=== PATIENT | female | born 1945 | race Caucasian/White ===

== ENCOUNTER 2017-01-03 19:44 | Emergency (ER) | payer OTHER ==
[~2017-01-03] VITALS: Ht 160 cm; Wt 55.7 kg
[2017-01-03 20:03] VITALS: PULSE 72; RESP 14; TEMP 98.6; O2SAT 96
[2017-01-03] MEDS ORDERED: SULF500T3 PO (20:25)
[2017-01-03] MEDS ORDERED: FLUT50SP EACH NARE (20:25)
[2017-01-03] MEDS ORDERED: CITA40TA4 PO (20:25)
[2017-01-03] MEDS ORDERED: ASPI81CH37 CHEW (20:25)
[2017-01-03] MEDS ORDERED: AZAT50 PO (20:25)
[2017-01-03] MEDS ORDERED: OMEP40CA2 PO (20:25)
[2017-01-03] MEDS ORDERED: LIDOCAINE 1%/EPINEPHrine 1:100,000 SOLN 20 ML VIAL INFIL ONE (20:30)
--- NOTE | 2017-01-03 20:31 | PD ---
HPI Chief Complaint: Laceration/Skin Injury Time Seen by Provider: 20:30 Travel History International Travel<30 days: No Contact w/Intl Traveler<30days: No Traveled to known affect area: No History of Present Illness HPI 71-year-old female presents the emergency department with laceration to the left middle middle finger. Patient states he was cutting peppers when she slipped and cut her finger. She is unsure of her last tetanus shot. She has full function but has a little bit of numbness distal to the wound in the fingertip. Pain is minimal. Bleeding is currently controlled. She is allergic to codeine. PFSH Past Medical History AAA: Yes Cardiovascular Problems: Yes (Lt. carotid stenosis) Gastrointestinal Disorders: Yes (IBS, Crohn's, Lyon's esophagus ) Hiatal Hernia: Yes Respiratory: Yes (COPD) Tetanus Vaccination: > 5 Years Influenza Vaccination: No ?: Not Menopausal: Yes Past Surgical History Hysterectomy: Yes Social History Alcohol Use: No Tobacco Use: Yes (1.5 PPD) Substance Use: No Allergies-Medications (Allergen,Severity, Reaction): Coded Allergies: Codeine (Verified Adverse Reaction, Severe, Convulsions , 01/03/17) Reported Meds & Prescriptions Reported Meds & Active Scripts Active Reported Fluticasone Nasal [place] 50 Mcg/Act Naspr 100 Mcg EACH NARE DAILY 50 mcg/spray Aspirin Low Dose (Aspirin) 81 Mg Chew 81 Mg CHEW DAILY Azathioprine 50 Mg Tab 50 Mg PO BID Hazardous agent use appropriate precautions for handling and disposal. Sulfasalazine 500 Mg Tab 500 Mg PO BID Omeprazole 40 Mg Cap 40 Mg PO DAILY Review of Systems General / Constitutional: No: Fever Eyes: No: Visual changes HENT: No: Headaches Cardiovascular: No: Chest Pain or Discomfort Respiratory: No: Shortness of Breath Gastrointestinal: No: Abdominal Pain Genitourinary: No: Dysuria Musculoskeletal: No: Pain Skin: No Rash Neurologic: No: Weakness Psychiatric: No: Depression Endocrine: No: Polydipsia Hematologic/Lymphatic: No: Easy Bruising Physical Exam Narrative GENERAL: Patient appears in no acute distress. SKIN: Warm and dry. Normal color. Normal turgor. Patient has a 1 cm laceration to the left middle middle finger on the palmar aspect. Bleeding is controlled with pressure. HEAD: Atraumatic. Normocephalic. EYES: Pupils equal and round. No scleral icterus. No injection or drainage. ENT: No nasal bleeding or discharge. Mucous membranes pink and moist. Pharynx is clear. NECK: Trachea midline. Supple nontender. CARDIOVASCULAR: Regular rate and rhythm. RESPIRATORY: No accessory muscle use. Clear to auscultation. Breath sounds equal bilaterally. MUSCULOSKELETAL: Extremities without clubbing, cyanosis, or edema. No obvious deformities. NEUROLOGICAL: Awake and alert. No obvious cranial nerve deficits. Motor grossly within normal limits. Five out of 5 muscle strength in the arms and legs. Normal speech. PSYCHIATRIC: Appropriate mood and affect; insight and judgment normal. Data Data Last Documented VS Vital Signs Date Time Temp Pulse Resp B/P Pulse Ox O2 Delivery O2 Flow Rate FiO2 01/03/17 20:03 98.6 72 14 96 Orders Lidocai-Epi 1%-1:100,000 Inj (Xylocaine- (01/03/17 20:30) Tetanus/Diphtheria Tox Adult (Tetanus/Di (01/03/17 20:45) MDM Medical Decision Making Medical Screen Exam Complete: Yes Emergency Medical Condition: Yes Differential Diagnosis Finger laceration. Need for tetanus. He for wound closure. Narrative Course Patient is medically stable at time of exam. Laceration was closed. See procedure note. Dressing should remain in place for at least 48 hours. Keep the area clean and dry. Patient should keep the area from prolonged water exposure until sutures are removed. Sutures should remain in place for 7 days. Patient follow with her primary care physician or return here for suture removal , or sooner if any of cellulitis develop. Procedures Procedure Narrative LACERATION LOCATION: Left middle middle finger LENGTH: 1 cm NUMBER OF STITCHES/KIRILL: 3 simple interrupted REPAIR: The area of the laceration was prepped with Betadine and sterilely draped. Digital block placed with 2.5 mL was 1% lidocaine with epi. The wound was copiously irrigated and explored without evidence of foreign body, tendon injury or neurovascular injury. The wound was closed using 5-0 Prolene. This was a single layer repair. A sterile dressing was applied. The patient was advised to keep the dressing clean and dry. Patient tolerated the procedure well. Diagnosis Primary Impression: Laceration of middle finger of left hand without complication Qualified Code: S61.213A - Laceration of middle finger of left hand without complication, initial encounter Referrals: Primary Care Physician Patient Instructions: Finger Laceration (ED), General Instructions Additional Instructions: Dressing should remain in place for at least 48 hours. Keep the area clean and dry. Patient should keep the area from prolonged water exposure until sutures are removed. Sutures should remain in place for 7 days. Patient follow with her primary care physician or return here for suture removal , or sooner if any of cellulitis develop. Med/Other Pt SpecificInfo: No Meds Exist/No RX given Disposition: 01 DISCHARGE HOME Condition: Stable Jose Guillermo January 03, 2017 20:30
[2017-01-03] MEDS ORDERED: TETANUS/DIPHTHERIA TOXOID ADULT 0.5 ML VIAL IM ONE (20:45)
== END 2017-01-03 21:22 | disposition home or self-care (01) ==
LOC: PHEFT 19:44
DX: S61.213A Laceration without foreign body of left middle finger without damage to nail, initial encounter (principal); K22.70 Barrett's esophagus without dysplasia; K50.90 Crohn's disease, unspecified, without complications; K58.9 Irritable bowel syndrome, unspecified; J44.9 Chronic obstructive pulmonary disease, unspecified; F17.210 Nicotine dependence, cigarettes, uncomplicated; Z23 Encounter for immunization; W45.8XXA Other foreign body or object entering through skin, initial encounter; Y93.G1 Activity, food preparation and clean up; Y92.9 Unspecified place or not applicable; Y99.9 Unspecified external cause status
CPT/HCPCS: 12001; 90471; 90714